=== PATIENT | female | born 1950 | race American Indian/Alaskan Native ===

== ENCOUNTER 2016-10-06 16:20 | Outpatient (CLI) | payer MEDICARE ==
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
== END 2016-10-06 16:21 | disposition home or self-care (01) ==
LOC: XRAY 16:20
PROVIDERS: ATTEND Internal Medicine
DX: Z01.818 Encounter for other preprocedural examination (principal); I10 Essential (primary) hypertension; S21.102D Unspecified open wound of left front wall of thorax without penetration into thoracic cavity, subsequent encounter; W34.09XD Accidental discharge from other specified firearms, subsequent encounter
CPT/HCPCS: 71020